=== PATIENT | female | born 2000 | race Asian ===

== ENCOUNTER 2019-09-03 20:22 | Emergency (ER) | payer OTHER ==
[~2019-09-03] VITALS: Ht 157.5 cm; Wt 55.8 kg
--- NOTE | 2019-09-03 20:25 | NUR ---
DR SANCHEZ AT BEDSIDE EVALUATING PT.
[2019-09-03 20:27] VITALS: BP 118/68
--- NOTE | 2019-09-03 20:30 | NUR ---
PT TAKEN TO BED 11
--- NOTE | 2019-09-03 20:30 | NUR ---
19F PRESENTS TO ED WITH C/O 6/10 EPIGASTRIC PAIN THAT RADIATES TO RUQ, LUQ THAT STARTED X 6 HOURS. REPORTS NAUSEA X 6 HOURS. DENIES VOMITING AND DIARRHEA. BOWEL SOUNDS NORMOACTIVE ON ALL QUADRANTS. STATES THEY ARE TAKING CIPRO FOR UTI X 2 DAYS. PMHX: UTI RX: CIPRO NKA
--- NOTE | 2019-09-03 20:56 | NUR ---
Ultrasound at bedside.
--- NOTE | 2019-09-03 20:58 | NUR ---
labs drawn and sent to lab
[2019-09-03 21:05] LABS: APPEARANCE,URINE CLEAR (CLEAR); BILIRUBIN,URINE NEGATIVE (NEGATIVE); BLOOD, URINE NEGATIVE (NEGATIVE); COLOR,URINE YELLOW (YELLOW); LEUKOCYTE ESTERASE ,URINE NEGATIVE (NEGATIVE); NITRITE, URINE NEGATIVE (NEGATIVE); UGLUCOSE NEGATIVE (NEGATIVE)
[2019-09-03 21:06] LABS: BASOPHILS % (AUTO) 0.5 % (0.0-2.0); EOSINOPHILS # (AUTO) 0.1 K/uL (0-0.4); EOSINOPHILS % (AUTO) 1.4 % (0.0-4.0); HEMATOCRIT 39.4 % (36-48); HEMOGLOBIN 13.1 g/dL (12.0-16.0); LYMPHOCYTES # (AUTO) 3.3 K/uL (2.5-16.5); LYMPHOCYTES % (AUTO) 34.4 % (20.5-51.1); MEAN CORPUSCULAR HEMOGLOBIN 30 pg (27-31); MEAN CORPUSCULAR HGB CONC 33 g/dL (33-37); MEAN CORPUSCULAR VOLUME 88.5 fL (80-94); MONOCYTES # (AUTO) 0.5 K/uL (0.8-1.0); MONOCYTES % (AUTO) 5.5 % (1.7-9.3); NEUTROPHILS # (AUTO) 5.5 K/uL (1.8-7.7); NEUTROPHILS % (AUTO) 58.2 % (42.2-75.2); PLATELET COUNT (AUTO) 253 K/uL (140-450); RED BLOOD CELL COUNT(AUTO) 4.45 MIL/uL (4.20-5.40); WHITE BLOOD COUNT (AUTO) 9.4 K/uL (4.8-10.8)
[2019-09-03 21:15] LABS: RBC,URINE 0-5 /HPF (0-5)
[2019-09-03 21:23] LABS: ALBUMIN 4.3 g/dL (3.4-5.0); CREATININE 0.9 mg/dL (0.6-1.3); TOTAL BILIRUBIN 0.4 mg/dL (0.0-1.0)
[2019-09-03 21:30] LABS: ANION GAP 16.6 (8-16); CARBON DIOXIDE 25.7 mmol/L (21-32); POTASSIUM 4.3 mmol/L (3.5-5.1)
--- NOTE | 2019-09-03 21:48 | NUR ---
pt laying in bed comfortably. no further needs at this time bed lowest and locked. rails x 1.
--- NOTE | 2019-09-03 22:45 | NUR ---
resting in bed. no further needs or questions at this time.
[2019-09-03 22:46] VITALS: BP 119/64
[2019-09-03] MEDS ORDERED: FAMOTIDINE 20 MG TAB PO ONE (23:05)
== END 2019-09-03 23:22 | disposition home or self-care (01) ==
LOC: MED 20:22
DX: K21.9 Gastro-esophageal reflux disease without esophagitis (principal)
CPT/HCPCS: 36415; 76705; 80053; 81001; 81025; 82150; 83690; 85025; 87086; 99284; Q0092